=== PATIENT | male | born 1960 | race Caucasian/White ===

== ENCOUNTER 2022-12-09 08:58 | Outpatient (CLI) | payer BC | END 2022-12-09 08:59 | disposition home or self-care (01) | LOC: CT 08:58 | PROVIDERS: ATTEND Urology | DX: N28.1 Cyst of kidney, acquired (principal); N20.0 Calculus of kidney; K76.89 Other specified diseases of liver; K44.9 Diaphragmatic hernia without obstruction or gangrene; D18.03 Hemangioma of intra-abdominal structures | CPT/HCPCS: 74170; 82565 ==

== ENCOUNTER 2023-10-07 09:11 | Outpatient (CLI) | payer BC | END 2023-10-07 09:12 | disposition home or self-care (01) | LOC: RAD 09:11 | PROVIDERS: ATTEND Internal Medicine | DX: J45.40 Moderate persistent asthma, uncomplicated (principal) | CPT/HCPCS: 71046 ==